=== PATIENT | female | born 1950 | race Caucasian/White ===

== ENCOUNTER 2021-02-18 12:51 | Emergency (ER) | payer OTHER, MEDICARE ==
[2021-02-18 16:02] LABS: Absolute Lymphocytes (CBC) 1.7 K/uL (0.7-4.9); Basophils % 0.9 % (0-1.3); RBC Red Blood Cell Count 4.29 M/uL (3.86-4.86)
[2021-02-18 16:03] LABS: Protime INR 1.21
--- NOTE | 2021-02-18 16:24 | RAD REPORT ---
EXAM DESCRIPTION: Kamini Single View02/18/2021 4:14 pm CLINICAL HISTORY: Shortness of breath COMPARISON: none FINDINGS: [id number] bilateral pulmonary opacities. Heart is mildly enlarged IMPRESSION: [id number] bilateral pulmonary opacities represent pulmonary edema or pneumonia
[2021-02-18 16:29] LABS: ALT/SGPT 23 U/L (12-78); AST/SGOT 20 U/L (15-37); Albumin 3.8 g/dL (3.4-5.0); Alkaline Phosphatase 60 U/L (45-117); BUN Blood Urea Nitrogen 16 mg/dL (7-18); Bicarbonate 26 mmol/L (21-32); Bilirubin Direct 0.2 mg/dL (0-0.2); Bilirubin Total 0.8 mg/dL (0.2-1.0); Glucose Level 104 mg/dL (74-106); Magnesium 2.2 mg/dL (1.8-2.4); NT PRO-BNP 9442 pg/mL (<125); Potassium 3.7 mmol/L (3.5-5.1); Sodium Level 141 mmol/L (136-145); Troponin (Emerg Dept Use Only) < 0.02 ng/mL (0.0-0.045)
[2021-02-18] MEDS ORDERED: FUROSEMIDE 20 MG/ 2ML VIAL ONE (17:53)
--- NOTE | 2021-02-18 19:00 | ER ---
Nurse's Notes [facility] Name: Stacy Stokes Age: 70 yrs Sex: Female : 1950 Arrival Date: 02/18/2021 Time: 12:53 Bed 9 Private MD: Diagnosis: Acute on chronic combined systolic (congestive) and diastolic (congestive) heart failure Presentation: 02/18 13:11 Chief complaint: Patient states: SOB for a month. Slight cough, runny nose, and "sinus ll1 issues" for 2 weeks. No fever. Coronavirus screen: Vaccine status: Patient reports being unvaccinated. Client denies travel out of the [place] in the last 14 days. congestion, cough unrelated to allergies, difficulty breathing, shortness of breath, Client presents with at least one sign or symptom that may indicate coronavirus-19. Standard/surgical mask placed on the client. Ebola Screen: Patient denies travel to an Ebola-affected area in the 21 days before illness onset. Initial Sepsis Screen: Does the patient meet any 2 criteria? HR > 90 bpm. No. Patient's initial sepsis screen is negative. Does the patient have a suspected source of infection? Yes: Productive cough/pneumonia. Risk Assessment: Do you want to hurt yourself or someone else? Patient reports no desire to harm self or others. Onset of symptoms was January 19, 2021. 13:11 Method Of Arrival: Ambulatory 1 13:11 Acuity: CARLOS 3 ll1 Triage Assessment: 13:12 General: Appears in no apparent distress. Behavior is calm, cooperative, appropriate ss for age. Pain: Denies pain. Neuro: No deficits noted. Cardiovascular: No deficits noted. Respiratory: Reports shortness of breath Airway is patent Trachea midline Respiratory effort is even, unlabored, Respiratory pattern is regular, symmetrical, Onset: The symptoms/episode began/occurred about 1 month, the patient has moderate shortness of breath. Historical: - Allergies: 13:13 PENICILLINS; ll1 - PMHx: 13:13 None; ll1 - PSHx: 13:13 tubes tied; ll1 - Immunization history:: Client reports having NOT received the Covid vaccine. Flu vaccine status is unknown. - Social history:: Smoking status: Patient denies any tobacco usage or history of. Screenin:44 Abuse screen: Denies threats or abuse. Nutritional screening: No deficits noted. ss Tuberculosis screening: No symptoms or risk factors identified. Assessment: 15:44 Reassessment: No changes from previously documented assessment. Patient and/or family ss updated on plan of care and expected duration. Pain level reassessed. Patient is alert, oriented x 3, equal unlabored respirations, skin warm/dry/pink. Cardiovascular: No deficits noted. Respiratory: Airway is patent Trachea midline Respiratory effort is even, unlabored, Respiratory pattern is regular, symmetrical. 19:11 Reassessment: Patient is alert, oriented x 3, equal unlabored respirations, skin bb warm/dry/pink. pt verbalized understanding of and agrees to plan of care discharge instructions given pt ambulated with steady gait to exit accompanied by family. Vital Signs: 13:11 BP 121 / 89; Pulse 100; Resp 16; Temp 97.3; Pulse Ox 97% on R/A; Weight 61.23 kg; ll1 Height 5 ft. 5 in. (165.10 cm); Pain 0/10; 13:11 Body Mass Index 22.46 (61.23 kg, 165.10 cm) ll1 ED Course: 12:53 Patient arrived in ED. as 13:13 Triage completed. ll1 13:14 Arm band placed on. ll1 15:44 Patient has correct armband on for positive identification. ss 15:51 Dieter Davis PA is PHCP. jr8 15:51 Jah Vergara MD is Attending Physician. jr8 15:51 Initial lab(s) drawn, by mi, sent to lab. Inserted saline lock: 20 gauge in left dh3 antecubital area, using aseptic technique. Blood collected. 16:14 XRAY Chest (1 view) In Process Unspecified. EDMS 17:00 No Cavazos, KATYA is Primary Nurse. jh5 17:01 Patient placed in an exam room, on a stretcher. ss 18:59 Ishaan Devries MD is Referral Physician. jr8 19:05 IV discontinued, bleeding controlled, No redness/swelling at site. Pressure dressing mb7 applied. Administered Medications: 17:59 Drug: Lasix (furosemide) 60 mg Route: IVP; Site: left antecubital; [facility] Outcome: 18:59 Discharge ordered by . jr8 19:12 Discharged to home ambulatory, with family. bb 19:12 Condition: stable 19:12 Discharge instructions given to patient, Instructed on discharge instructions, follow up and referral plans. medication usage, Demonstrated understanding of instructions, follow-up care, medications, Prescriptions given X 2. 19:12 Patient left the ED. bb Signatures: Dispatcher [employer] Helen Vasquez Brenda RN RN Sujata Whitaker RN RN Dieter Davis, HARSHAD PATRICIA 8 Mala Burns 3 Sukh Ingram RN RN 1 No Cavazos RN RN 5 Fariba Smith 7 Corrections: (The following items were deleted from the chart) 15:44 15:43 General: Appears in no apparent distress. Behavior is calm, cooperative, ss appropriate for age, 15:44 15:43 Pain: Denies pain. [facility] 15:44 15:43 Respiratory: Reports shortness of breath Airway is patent Trachea midline ss Respiratory effort is even, unlabored, Respiratory pattern is regular, symmetrical, Onset: The symptoms/episode began/occurred about 1 month, the patient has moderate shortness of breath 15:44 15:43 Neuro: No deficits noted. [facility] 15:44 15:43 Cardiovascular: No deficits noted. [facility]
--- NOTE | 2021-02-18 19:00 | EDPHYS ---
Physician Documentation [facility] Name: Stacy Stokes Age: 70 yrs Sex: Female : 1950 Arrival Date: 02/18/2021 Time: 12:53 Bed 9 Private MD: ED Physician Jah Vergara HPI: 02/18 15:48 This 70 yrs old Female presents to ER via Ambulatory with complaints of Shortness Of jr8 Breath. 15:48 70-year-old female presents with shortness of breath x1 month. Patient states she saw 8 primary care provider approximately 2 to 3 weeks ago given unknown medication for symptoms that only provided temporary relief. Patient presents today with worsening shortness of breath and generalized weakness that is been ongoing for the past few days. Patient denies chest pain or fever. Patient denies any past medical history.. Historical: - Allergies: 13:13 PENICILLINS; ll1 - PMHx: 13:13 None; ll1 - PSHx: 13:13 tubes tied; ll1 - Immunization history:: Client reports having NOT received the Covid vaccine. Flu vaccine status is unknown. - Social history:: Smoking status: Patient denies any tobacco usage or history of. ROS: 15:50 Eyes: Negative for injury, pain, redness, and discharge, ENT: Negative for injury, jr8 pain, and discharge, Neck: Negative for injury, pain, and swelling, Cardiovascular: Negative for chest pain, palpitations, and edema, Abdomen/GI: Negative for abdominal pain, nausea, vomiting, diarrhea, and constipation, Back: Negative for injury and pain, MS/Extremity: Negative for injury and deformity, Skin: Negative for injury, rash, and discoloration, Neuro: Negative for headache, weakness, numbness, tingling, and seizure. 15:50 Respiratory: Positive for dyspnea on exertion, shortness of breath. Exam: 15:50 Eyes: Pupils equal round and reactive to light, extra-ocular motions intact. Lids and jr8 lashes normal. Conjunctiva and sclera are non-icteric and not injected. Cornea within normal limits. Periorbital areas with no swelling, redness, or edema. ENT: Nares patent. No nasal discharge, no septal abnormalities noted. Tympanic membranes are normal and external auditory canals are clear. Oropharynx with no redness, swelling, or masses, exudates, or evidence of obstruction, uvula midline. Mucous membranes moist. Neck: Trachea midline, no thyromegaly or masses palpated, and no cervical lymphadenopathy. Supple, full range of motion without nuchal rigidity, or vertebral point tenderness. No Meningismus. 15:50 Respiratory: Lungs have equal breath sounds bilaterally, clear to auscultation and percussion. No rales, rhonchi or wheezes noted. No increased work of breathing, no retractions or nasal flaring. Abdomen/GI: Soft, non-tender, with normal bowel sounds. No distension or tympany. No guarding or rebound. No evidence of tenderness throughout. Back: No spinal tenderness. No costovertebral tenderness. Full range of motion. Skin: Warm, dry with normal turgor. Normal color with no rashes, no lesions, and no evidence of cellulitis. MS/ Extremity: Pulses equal, no cyanosis. Neurovascular intact. Full, normal range of motion. Neuro: Awake and alert, GCS 15, oriented to person, place, time, and situation. Cranial nerves II-XII grossly intact. Motor strength 5/5 in all extremities. Sensory grossly intact. Cerebellar exam normal. Normal gait. 15:50 Cardiovascular: Rate: normal, Rhythm: regular, Pulses: Pulses are 2+ in right radial artery and left radial artery. Heart sounds: normal, normal S1and S2, murmur, systolic, grade 2 over 6, Edema: is not appreciated. Vital Signs: 13:11 BP 121 / 89; Pulse 100; Resp 16; Temp 97.3; Pulse Ox 97% on R/A; Weight 61.23 kg; ll1 Height 5 ft. 5 in. (165.10 cm); Pain 0/10; 13:11 Body Mass Index 22.46 (61.23 kg, 165.10 cm) ll1 MDM: 16:01 Patient medically screened. jr8 18:58 Data reviewed: vital signs, nurses notes, lab test result(s), radiologic studies, plain jr8 films. Data interpreted: Pulse oximetry: on room air is 97 %. Interpretation: normal. Counseling: I had a detailed discussion with the patient and/or guardian regarding: the historical points, exam findings, and any diagnostic results supporting the discharge/admit diagnosis, lab results, radiology results, the need for outpatient follow up, a foreign food specialty cook, to return to the emergency department if symptoms worsen or persist or if there are any questions or concerns that arise at home. ED course: Patient feeling much better post Lasix. Has been hemodynamically stable with normal oxygen saturation and no increased work of breathing at rest or with exertion. Discussed with her that she does have signs of heart failure and needs to have immediate cardiology follow-up. Patient has an appointment set but would come back if she were to worsening point time.. 02/18 15:48 Order name: Basic Metabolic Panel; Complete Time: 17:02/18 15:48 Order name: CBC with Diff; Complete Time: 16:13 02/18 15:48 Order name: LFT's; Complete Time: 17:02/18 15:48 Order name: Magnesium; Complete Time: 17:02/18 15:48 Order name: NT PRO-BNP; Complete Time: 17:02/18 15:48 Order name: PT-INR; Complete Time: 16:02/18 15:48 Order name: Troponin (emerg Dept Use Only); Complete Time: 17:02/18 15:48 Order name: XRAY Chest (1 view); Complete Time: 17:02/18 15:48 Order name: EKG; Complete Time: 15:49 02/18 15:48 Order name: Cardiac monitoring; Complete Time: 15:48 02/18 15:48 Order name: EKG - Nurse/Tech; Complete Time: 15:48 02/18 15:48 Order name: IV Saline Lock; Complete Time: 15:48 02/18 15:48 Order name: Labs collected and sent; Complete Time: 15:48 02/18 15:48 Order name: O2 Per Protocol; Complete Time: 17:02/18 15:48 Order name: O2 Sat Monitoring; Complete Time: 17: Administered Medications: 17:59 Drug: Lasix (furosemide) 60 mg Route: IVP; Site: left antecubital; jh5 Disposition Summary: 02/18/21 18:59 Discharge Ordered Location: Home jr8 Problem: new jr8 Symptoms: have improved jr8 Condition: Stable jr8 Diagnosis - Acute on chronic combined systolic (congestive) and diastolic (congestive) heart jr8 failure Followup: jr8 - With: Ishaan Devries MD - When: 1 - 2 days - Reason: Recheck today's complaints, Continuance of care, Re-evaluation by your physician Discharge Instructions: - Discharge Summary Sheet jr8 - Heart Failure, Diagnosis jr8 Forms: - Medication Reconciliation Form jr8 - Thank You Letter jr8 - Antibiotic Education jr8 - Prescription Opioid Use jr8 Prescriptions: - Lasix 20 mg Oral Tablet - take 1 tablet by ORAL route once daily; 20 tablet; Refills: 0, Product jr8 Selection Permitted - Potassium Chloride 10 mEq Oral capsule, extended release - take 1 tablet by ORAL route once daily; 30 tablet; Refills: 0, Product jr8 Selection Permitted Addendum: 02/21/2021 07:18 Co-signature as Attending Physician, Jah Vergara MD I agree with the assessment and r n plan of care. Attestation: The patient's history, exam findings, diagnostics, and a summary of any interventions or procedures was reviewed in detail with Dieter PATRICIA. Signatures: Dispatcher [employer] EDJah Tineo MD MD rn Roszak, Josh, PA PA jr8 Sukh Ingram RN RN ll1 No Cavazos RN RN jh5
[2021-02-18 19:19] VITALS: BP 121/89; TEMP 97.3; O2SAT 97
== END 2021-02-18 19:12 | disposition home or self-care (01) ==
LOC: ER 12:51
DX: I50.43 Acute on chronic combined systolic (congestive) and diastolic (congestive) heart failure (principal)
CPT/HCPCS: 93005; 85025; 80048; 36415; 83735; 85610; 80076; 84484; 83880; 71045; 96374; 99284; J1940

== ENCOUNTER 2021-03-09 13:00 | Day surgery (SDC) | payer OTHER, MEDICARE ==
[2021-03-05 16:56] LABS: Absolute Lymphocytes (CBC) 1.6 K/uL (0.7-4.9); Hematocrit 37.2 % (36.0-45.0); Lymphocytes % 28.7 % (15.3-44.8); RBC Red Blood Cell Count 4.18 M/uL (3.86-4.86)
[2021-03-05 17:00] LABS: Protime INR 1.11
[2021-03-05 17:10] LABS: Potassium 4.2 mmol/L (3.5-5.1)
--- NOTE | 2021-03-05 17:15 | RAD REPORT ---
EXAM DESCRIPTION: RADChest Pa And Lat (2 Views)03/05/2021 4:45 pm CLINICAL HISTORY: Preop for cardiac catheterization COMPARISON: February 18, 2021 FINDINGS: Previously described bilateral pulmonary opacities appear mostly resolved. The heart remains enlarged.
[2021-03-09] MEDS ORDERED: NA CHLORIDE 0.9% 500 ML ONE (13:15)
[2021-03-09 14:06] VITALS: TEMP 97
[2021-03-09] MEDS ORDERED: MIDAZOLAM HCL 2 MG/2 ML INJ ONE (14:25)
[2021-03-09] MEDS ORDERED: FENTANYL CITR 100 MCG/2 ML ONE (14:25)
[2021-03-09] MEDS ORDERED: VERAPAMIL HCL 10 MG/4 ML VIAL IV ONE (14:25)
[2021-03-09] MEDS ORDERED: HEPARIN 5000 UNIT/ML 1 ML VIAL ONE (14:25)
[2021-03-09] MEDS ORDERED: NITROGLYCERIN 100 MCG/ML SYR (for cath lab use only) IV ONE (14:26)
[2021-03-09] MEDS ORDERED: ATROPINE SULF 1 MG/10 ML SYR IV ONE (14:26)
--- NOTE | 2021-03-09 16:15 | OP ---
Date of Procedure: 03/09/2021 Surgeon: CONNOR RIVAS Procedure Performed: Selective coronary angiogram. Indication: Severe aortic valve stenosis, preoperative diagnostic coronary angiogram. Access: Right radial artery 6-[place] closed with TR band. Complications: None. Bleeding: Less than 10 mL. Description Of Procedure: After risks, benefits, and alternatives were explained, the patient agreed to the procedure and signed informed consent. The patient was brought into the cardiac catheterizat ion laboratory, prepped and draped in usual sterile fashion. 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 Then, we removed the catheter sheath and placed TR band with good hemostasis. Findings: 1.Left main; large, normal. 2.LAD and diagonal branches are normal, large vessel. 3.Left circumflex; normal, moderate size. 4.RCA; large, dominant and normal. Conclusion: Normal coronary arteries. Plan: Proceed with aortic valve replacement workup as planned. /ABBY Voice ID: [id number] Report ID: [id number]
[2021-03-09 17:01] VITALS: O2SAT 98
[2021-03-09 17:41] VITALS: BP 103/79
== END 2021-03-09 17:30 | disposition home or self-care (01) ==
LOC: CCL 13:00
PROVIDERS: ATTEND Internal Medicine
DX: I35.2 Nonrheumatic aortic (valve) stenosis with insufficiency (principal); R07.9 Chest pain, unspecified; I50.9 Heart failure, unspecified; Z88.0 Allergy status to penicillin; Z20.822 Contact with and (suspected) exposure to COVID-19
CPT/HCPCS: 93005; 85025; 80048; 36415; 85610; 85730; 71046; 93454; U0003; C1893; J1644; J7040; J2250; J3010